=== PATIENT | female | born 1965 | race Caucasian/White ===

== ENCOUNTER → 2022-09-23 | Outpatient (CLI) | payer OTHER ==
--- NOTE | 2022-09-23 17:58 | DIREP ---
PROCEDURE:NM BONE SCAN 3 PHASE WHOLE BODY COMPARISON:[facility], CR, XRAY HIP MIN 2VW-RT, 06/16/2021, 10:59 AM. INDICATIONS:M25.551 RIGHT HIP PAIN TECHNIQUE:After obtaining the patient's consent, Technetium 99m MDP was injected intravenously. Dynamic flow, immediate blood pool, and delayed static images were obtained. PHARMACEUTICAL:Technetium 99m MDP, 24.7 mCi FINDINGS: There is symmetric blood flow and blood pool activity about the hips bilaterally. Photopenic defect of the right hip on the delayed static images would suggest previous right hip arthroplasty. No suspicious increased radiotracer activity is identified about the prosthesis to suggest hardware loosening or infection. Mild degenerative activity is noted within the shoulders and sternoclavicular joints with apparent subtle degenerative activity within the wrists, hands, knees, ankles and feet bilaterally. Minimal scattered degenerative activity within the spine. No suspicious focal increased radiotracer activity is identified to suggest acute fracture or active osteoblastic lesion. CONCLUSION: 1. No suspicious blood flow, blood pool or delayed radiotracer activity is identified about a right hip prosthesis to indicate hardware loosening or infection. 2. Mild scattered degenerative activity within the axial and appendicular skeleton, as discussed above Dictated by: Murray Raman M.D. On 09/23/2022 at 05:47 PM
== END | disposition home or self-care (01) ==
LOC: RAD 09:17
PROVIDERS: ATTEND Orthopaedic Surgery
DX: M16.11 Unilateral primary osteoarthritis, right hip (principal)
CPT/HCPCS: 78315; A9503